=== PATIENT | male | born 1970 | race Caucasian/White ===

== ENCOUNTER → 2024-10-08 | Outpatient (CLI) | payer BC, SELFPAY ==
--- NOTE | 2024-10-08 18:15 | CT_ITS ---
PROCEDURE: LOW DOSE CT LUNG SCREENING 10/08/2024 REASON FOR EXAM: NICOTINE DEPENDENCE 1/2 pack per day smoker times 20 years, quit 5 years ago TECHNIQUE: LOW DOSE CT LUNG SCREENING Coronal and Sagittal reconstruction series were provided. One or more dose reduction techniques were used (e.g., Automated exposure control, adjustment of the mA and/or kV according to patient size, use of iterative reconstruction technique). REFERENCE LINK: [facility] [employer] Lung-RADS RADIATION DOSE SUMMARY: CTDlvol: 4.02 mGy DLP: 157.53 mGycm COMPARISON: None FINDINGS: Lungs are expanded normally without evidence of a superimposed infiltrate or effusion. No suspicious noncalcified mass or nodule. Limited soft tissue windows show a normal-appearing thyroid gland. No suspicious axillary, mediastinal, or perihilar adenopathy. The thoracic aorta tapers normally. Calcified coronary vessels are noted. Bony structures show degenerative change. Limited cuts through the upper abdomen do not show a suspicious abnormality CT/Low Dose CT Lung Screening IMPRESSION: No acute pulmonary process, no suspicious noncalcified mass or nodule Coronary artery calcification (CAC) is is present Lung-RADS Category: 1 NEGATIVE. RECOMMEND 12-MONTH SCREENING LDCT. Other Significant Findings: Reading Location: [id number]
== END | disposition home or self-care (01) ==
LOC: CT 18:07
PROVIDERS: PCP Nurse Practitioner Family; Referring Provider Internal Medicine Pulmonary Disease; Visit Provider Internal Medicine Pulmonary Disease
DX: Z87.891 Personal history of nicotine dependence (principal)
CPT/HCPCS: 71271